=== PATIENT | female | born 1990 ===

== ENCOUNTER 2017-04-18 13:00 | Emergency (ER) | payer MEDICAID ==
[2017-04-18] MEDS ORDERED: Lactated Ringer's 1,000 ML IV ONE (13:15)
[2017-04-18 13:16] VITALS: BMI 29.2
[2017-04-18 13:49] LABS: BASO % 0.4 % (0.0-2.0); EOS % 0.4 % (0.0-4.0); HEMATOCRIT 28.7 % (34.0-47.0); LYMPH # 1.2 K/uL (1.0-4.3); LYMPH % 13.1 % (20.0-40.0); MEAN CELL VOLUME 85.9 fl (81.0-99.0); MEAN CORPUSCULAR HEMOGLOBIN 28.1 pg (27.0-31.0); MEAN CORPUSCULAR HGB CONC 32.7 g/dL (33.0-37.0); MEAN PLATELET VOLUME 9.7 fl (7.2-11.7); MONO # 0.4 K/uL (0.0-0.8); MONO % 4.9 % (0.0-10.0); NEUT # 7.2 K/uL (1.8-7.0); NEUT % 81.2 % (50.0-75.0); RED CELL DISTRIBUTION WIDTH 14.3 % (11.5-14.5); WHITE BLOOD COUNT 8.9 K/uL (4.8-10.8)
--- NOTE | 2017-04-18 15:02 | OBHP ---
Datetime: 04/18/2017 14:44 IP Adm Impression: , intrauterine IP Admit Plan: Discharge home Admit Comment, IP Provider: 26 yo at 33+2 wks w/ EDC 06/04/2017 c/o feeling yara dizzy x 3 da ys. Pt denies feeling dizzy now. Pt also reports feeling a lot of preesure in vagina on Friday, , mild pressure since. Pt denies LOF, VB, reports FM. Pt reports sciatica. 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, denies any abn paps Soc hx: Pt denies tobacco, alcohol, and illicit drugs Fam hx: M-CAD PE: AFVSS Gen'l: pt appears confortable, sitting up in bed Abd: soft, NT, gravid VE: Ect os open, internal os closed, long Ext: NT A/P: 26 yo at 33+2 wks w/ dizziness and pelvic pressure Pt denies sx currently NST reactive Hgb 9.4, anemic Pt encouraged to take her PNVs and start ferrous sulfate 325 1-2 x/ day Rec that she consider PT or chiropractor for sciatica Discharged home Extremities - PN: Normal Abdomen - PN: Normal General - PN: Normal FHR - Baseline A Provider: 120 Membranes, Provider: Intact Contraction Comments Provider: none EGA AdmitDate IP: 33.2 Vital Signs Provider: Reviewed IP Chief Complaint: Maternal discomfort NICHD Variability Prov Fetus A: Moderate 6-25bpm NICHD Accel Fetus A IP Provider: 15X15 FHR Category Provider Fetus A: Category I NICHD Decel Fetus A IP Provider: None Dilatation, Provider: 0 Effacement, Provider: 0 Station, Provider: -3 Genitourinary Exam: Normal
--- NOTE | 2017-04-18 15:10 | OBDCSUM ---
Datetime: 04/18/2017 14:25 Discharged to, Provider: Home Follow up at, Provider: Dr Faulkner Disch Instr Activity: Normal activity Disch Instr Diet: Regular Discharge Instructions, Provider: Routine instructions given Discharge Time: 04/18/2017 14:25 Follow up in weeks, Provider: 03/23/17 Disch Referrals: None Contraception discussed, Prov: No Discharge Diagnosis Prov Other: Dizziness and pelvic pressure at 33+ wks
== END 2017-04-18 14:45 | disposition home or self-care (01) ==
LOC: H.EROB2 13:00
DX: O47.03 False labor before 37 completed weeks of gestation, third trimester (principal); Z3A.33 33 weeks gestation of pregnancy; O26.93 Pregnancy related conditions, unspecified, third trimester; M54.40 Lumbago with sciatica, unspecified side

== ENCOUNTER 2017-05-05 17:48 | Observation (INO) | payer MEDICAID ==
--- NOTE | 2017-05-05 19:19 | OBHP ---
Datetime: 05/05/2017 19:14 IP Adm Impression: , intrauterine IP Chief Complaint Other: pelvic pain IP Admit Plan: Observation/Evaluation Admit Comment, IP Provider: UC and pt feeliing more now sight cercical changes will start iv hydrati on and steroids and antibiotics Pt explained the situation and understands and agreed Extremities - PN: Normal Abdomen - PN: Abnormal Breast - PN: Normal Lungs - PN: Normal Heart - PN: Normal Thyroid - PN: Normal Neurologic - PN: Normal HEENT - PN: Normal General - PN: Normal FHR - Baseline A Provider: 140's Membranes, Provider: Intact Comments, ACOG Physical Exam: Abd gravid NT, fundus at 33 cm above sp ext no calf tenderness Gestation - Est Wks by US: 35w 5d Pool Provider: Negative IP Hx Assessment: The History has been Reviewed and is Current EGA AdmitDate IP: 35.5 Vital Signs Provider: Reviewed IP Chief Complaint: Uterine contractions; Other NICHD Variability Prov Fetus A: Moderate 6-25bpm NICHD Accel Fetus A IP Provider: 10X10 NICHD Decel Fetus A IP Provider: None Dilatation, Provider: 1-2 cm Effacement, Provider: 30% Genitourinary Exam: Normal DTRs - PN: Normal
[2017-05-05 19:22] VITALS: BMI 29.9
[2017-05-05] MEDS ORDERED: Betamethasone Soluspan 30 mg/5mL Inj Susp IM ONE (19:23)
[2017-05-05] MEDS ORDERED: Lactated Ringer's 1,000 ML IV SCH ×2 (19:30→22:15)
[2017-05-05] MEDS: AMPicillin 1 GM in Sodium Chloride 0.9% 100 ML IVPB SCH (20:30)
[2017-05-06] MEDS: AMPicillin 1 GM in Sodium Chloride 0.9% 100 ML IVPB SCH (02:24)
--- NOTE | 2017-05-06 07:51 | OBPN ---
Datetime: 05/06/2017 07:44 IP Progress Impression: Arrest of dilatation/descent; Reassuring heart rate; labor IP Progress Plan: Discharge Membranes, Provider: Intact Contraction Comments Provider: none FHR - Baseline A Provider: 140-150 Gestation - Est Wks by US: 35w 6d IP Progress Note Comment: pt was hydrated and Celestone given and observed overnight no further UC a nd pt voices no more pains No cervical changes noted in this morning exam and discussed with pt about D/C home on bed and pelvic rest and need to hydrate and continue po Macrobid and Valtrex. Pt to ret urn at 8pm tonight for 2nd dose of Celestone. Pt understands and agreed. Will follow in office on T hurraj.. Instructions given NICHD Accel Fetus A IP Provider: 10X10 NICHD Variability Prov Fetus A: Moderate 6-25bpm Dilatation, Provider: 1-2cm Effacement, Provider: 30-40% NICHD Decel Fetus A IP Provider: None Datetime: 05/05/2017 19:14 Pool Provider: Negative Vital Signs Provider: Reviewed Datetime: 04/18/2017 14:44 FHR Category Provider Fetus A: Category I Station, Provider: -3
== END 2017-05-06 07:52 | disposition home or self-care (01) ==
LOC: H.EROB2 17:48 → H.L&D 22:00
PROVIDERS: ADMIT Specialist; ATTEND Specialist
DX: O60.03 Preterm labor without delivery, third trimester (principal); Z3A.35 35 weeks gestation of pregnancy

== ENCOUNTER 2017-05-06 20:00 | Emergency (ER) | payer MEDICAID ==
[2017-05-06] MEDS ORDERED: Betamethasone Soluspan 30 mg/5mL Inj Susp IM ONE (20:28)
[2017-05-06 20:29] VITALS: BMI 30.2
--- NOTE | 2017-05-06 21:11 | OBHP ---
Datetime: 05/06/2017 21:05 IP Adm Impression: , intrauterine IP Admit Plan: Discharge home Admit Comment, IP Provider: IUP at 36w came for 2nd dose of steroids...was given 1st yesterd ay. No CTX; no VB; +FM POBGYNH: x 2 PMH: HSV on Valtrex/IUTI on Macrobid PSH: denies NKA PSoH: crystal smoking, etoh, drug A; IUP at 36w S/P 2nd dose steroids threatened PTL PLAN: d/c home case disucssed with Dr Cerrato...follow up as shceduled Pelvic Type - PN: Not Done Extremities - PN: Normal Abdomen - PN: Normal Back - PN: Normal Breast - PN: Normal Lungs - PN: Normal Heart - PN: Normal Thyroid - PN: Normal Neurologic - PN: Normal HEENT - PN: Normal General - PN: Normal FHR - Baseline A Provider: 130 Pool Provider: Negative IP Hx Assessment: The History has been Reviewed and is Current EGA AdmitDate IP: 35.6 Vital Signs Provider: Reviewed; Within Normal Limits IP Chief Complaint: Other NICHD Variability Prov Fetus A: Moderate 6-25bpm NICHD Accel Fetus A IP Provider: 15X15 FHR Category Provider Fetus A: Category I Genitourinary Exam: Not Done DTRs - PN: Normal Datetime: 05/06/2017 07:44 Membranes, Provider: Intact Contraction Comments Provider: none Gestation - Est Wks by US: 35w 6d NICHD Decel Fetus A IP Provider: None Dilatation, Provider: 1-2cm Effacement, Provider: 30-40%
--- NOTE | 2017-05-06 21:16 | OBDCSUM ---
Datetime: 05/06/2017 21:09 Discharged to, Provider: Home Follow up at, Provider: Dr Faulkner Disch Instr Activity: Normal activity Disch Instr Diet: Regular Discharge Instructions, Provider: Routine instructions given Discharge Diagnosis, Provider: Reynaldo Labor - Undelivered Follow up in weeks, Provider: in 1w Disch Referrals: None Contraception discussed, Prov: Yes Disch Activity Restrictions: Minimize walking; Minimize stair-climbing; No sexual activity; Nothing in vagina - [place], tampons, douche Discharge Comment, Provider: 1nd dose steroids given
== END 2017-05-06 21:30 | disposition home or self-care (01) ==
LOC: H.EROB2 20:00
DX: O47.9 False labor, unspecified (principal); Z3A.36 36 weeks gestation of pregnancy

== ENCOUNTER 2017-05-14 18:12 | Inpatient (IN) | payer MEDICAID ==
[2017-05-14 19:28] VITALS: BP 118/77; PULSE 106; RESP 18; TEMP 99; O2SAT 100
[2017-05-14 19:48] VITALS: BMI 29.9
[2017-05-14] MEDS: Lactated Ringer's 1,000 ML IV SCH (21:00)
[2017-05-14 21:07] LABS: BASO % 0.3 % (0.0-2.0); EOS # 0.1 K/uL (0.0-0.7); EOS % 0.5 % (0.0-4.0); HEMATOCRIT 30.1 % (34.0-47.0); LYMPH # 1.8 K/uL (1.0-4.3); LYMPH % 19.3 % (20.0-40.0); MEAN CELL VOLUME 85.4 fl (81.0-99.0); MEAN CORPUSCULAR HEMOGLOBIN 27.8 pg (27.0-31.0); MEAN CORPUSCULAR HGB CONC 32.6 g/dL (33.0-37.0); MONO # 0.6 K/uL (0.0-0.8); MONO % 6.5 % (0.0-10.0); NEUT # 7.1 K/uL (1.8-7.0); NEUT % 73.4 % (50.0-75.0); RED CELL DISTRIBUTION WIDTH 16.8 % (11.5-14.5); WHITE BLOOD COUNT 9.6 K/uL (4.8-10.8)
[2017-05-14 21:20] LABS: RBC URINE 3 /hpf (0-3); URINE BACTERIA RARE (<OCC); URINE BILIRUBIN NEGATIVE (NEGATIVE); URINE BLOOD NEGATIVE (NEGATIVE); URINE COLOR YELLOW (YELLOW); URINE GLUCOSE (UA) NEG (Normal); URINE KETONE NEGATIVE (NEGATIVE); URINE LEUKOCYTE ESTERASE MOD Leu/uL (Negative); URINE PROTEIN NEGATIVE (NEGATIVE); URINE UROBILINOGEN 0.2-1.0 mg/dL (0.2-1.0); WBC URINE 6 /hpf (0-5)
[2017-05-14] MEDS ORDERED: Oxytocin 30 units/LR 500ML 30 U/500 ML BAG IV ONE (21:20)
[2017-05-14] MEDS: AMPicillin 1 GM in Sodium Chloride 0.9% 100 ML IVPB SCH (21:30)
--- NOTE | 2017-05-14 21:30 | OBADHP ---
Datetime: 05/14/2017 21:22 Admit Comment, IP Provider: Cervical changes noted and pt very unconfortable will admit Start IV ant ibiotics for GBS coverage Extremities - PN: Normal Abdomen - PN: Abnormal Back - PN: Normal Lungs - PN: Normal Heart - PN: Normal Thyroid - PN: Normal Neurologic - PN: Normal HEENT - PN: Normal General - PN: Normal FHR - Baseline A Provider: 150's Membranes, Provider: Intact Contraction Comments Provider: irreg Comments, ACOG Physical Exam: Abd gravid NT fundus at term, FCA+ Ext no calf tenderness Gestation - Est Wks by US: 37.0 Vital Signs Provider: Reviewed IP Chief Complaint: Uterine contractions; Maternal discomfort NICHD Variability Prov Fetus A: Moderate 6-25bpm NICHD Accel Fetus A IP Provider: 10X10 NICHD Decel Fetus A IP Provider: None Dilatation, Provider: 3-4 Effacement, Provider: 50% Station, Provider: -2 Genitourinary Exam: Normal DTRs - PN: Normal IP Adm Impression: Term, intrauterine IP Admit Plan: Admit to unit; Initiate labor protocol Datetime: 05/06/2017 21:05 Pelvic Type - PN: Not Done Breast - PN: Normal Pool Provider: Negative IP Hx Assessment: The History has been Reviewed and is Current FHR Category Provider Fetus A: Category I EGA AdmitDate IP: 35.6 Datetime: 05/05/2017 19:14 IP Chief Complaint Other: pelvic pain
[2017-05-15] MEDS: AMPicillin 1 GM in Sodium Chloride 0.9% 100 ML IVPB SCH ×3 (01:30→09:30)
[2017-05-15] MEDS: Lactated Ringer's 1,000 ML IV SCH (08:00)
--- NOTE | 2017-05-15 10:58 | OBDS ---
MATERNAL INFORMATION Estimated Blood Loss (ml): 200cc Maternal Complications: None Provider Comments: Delivered a living baby boy appears term cried spontaneously, Apfgar 9/9, AF melissa r Placenta delivered complete and intact Small vaginal/perineal laceration repaired as above without any complications Uterus contracted well [id number], no cervical or other vaginal tears/lacerations note d. Tolerated procedure well no complications LABOR SUMMARY EDC: 06/04/2017 00:00 LABOR INFORMATION Reason for Induction: Not Applicable Reason for Induction Other: n/a Group B Beta Strep: Positive Steroids Given: None Reason Steroids Not Administered: Not Applicable Other Reason Not Administered: n/a MEMBRANES Membranes Rupture Method: Artificial Rupture of Membranes: 05/15/2017 07:00 Amniotic Fluid Color: Clear Amniotic Fluid Amount: Moderate Amniotic Fluid Odor: Normal VAGINAL DELIVERY Episiotomy: None Laceration Extension: First Degree Laceration Type: Vaginal Laceration Repair Note: small vaginal-peineal laceration 1st dg repaired with 2-0 chromic without an y complications Sponge Count Correct: Yes Sharps Count Correct: Yes Count Comment: count correct CSECTION DELIVERY Primary Indication: N/A Secondary Indication: N/A CSection Incision: N/A BABY A INFORMATION Forceps: N/A Vacuum Extraction: N/A Shoulder Dystocia : No PLACENTA INFORMATION BABY A Placenta Method of Delivery: Spontaneous Placenta Status: Delivered CORD INFORMATION BABY A Nuchal Cord : Around Neck x1, Loose
[2017-05-15] MEDS ORDERED: Oxycodone/Acetaminophen 5/325 mg Tab PO PRN ×2 (11:00→15:10)
[2017-05-15] MEDS ORDERED: Benzocaine/Menthol SPRAY TOP PRN ×2 (12:36→15:10)
[2017-05-16 07:13] LABS: HEMATOCRIT 28.5 % (34.0-47.0); MEAN CELL VOLUME 85.4 fl (81.0-99.0); MEAN CORPUSCULAR HEMOGLOBIN 27.7 pg (27.0-31.0); MEAN CORPUSCULAR HGB CONC 32.4 g/dL (33.0-37.0); RED CELL DISTRIBUTION WIDTH 17.4 % (11.5-14.5); WHITE BLOOD COUNT 8.6 K/uL (4.8-10.8)
--- NOTE | 2017-05-16 10:11 | OBPPN ---
Datetime: 05/16/2017 10:02 PP Pain Prov: Within normal limits PP Pain Prov comment: No SOB, chest pains or leg pains PP Nausea Prov: Denies PP Flatus Prov: Yes PP BM Prov: No PP Breasts Prov: Normal PP Lungs Prov: Normal PP Abdomen/Uterus Prov: Abnormal PP Lochia Prov: Normal PP Vulva/Perineum Prov: Abnormal PP CVA Tenderness Prov: Normal PP Extremities Prov: Normal PP C/S Incision Prov: Not Applicable PP Progress Prov: Normal PP Comments Phys Exam Prov: Abd soft, ND, fundus firm NT below the umb, perineum repaired Ext no angie f tenderness PP Impression Prov: Normal progression PP Plan Prov: Continue present management PP Impression Other Prov: anemia PP Progress Note Prov: Continue PP care and start on po iron (pt is totally asymptomatic) Vital Signs Provider PP: Reviewed
--- NOTE | 2017-05-17 11:16 | OBDCSUM ---
Datetime: 05/17/2017 11:11 Discharged to, Provider: Home Follow up at, Provider: Disch Instr Activity: May be up to bathroom; May be up for meals; May Shower Disch Instr Diet: Regular Discharge Instructions, Provider: Routine instructions given Discharge Diagnosis, Provider: Term Delivered Discharge Time: 05/17/2017 11:11 Follow up in weeks, Provider: 4-6weeks Disch Referrals: None Disch Activity Restrictions: No exercising; No lifting; No driving; Minimize walking; Minimize stair -climbing; No sexual activity; Nothing in vagina - [place], tampons, douche Discharge Comment, Provider: stable ppd2 dc home today call office if any problems Contraception after Delivery: Undecided
[2017-05-17] MEDS ORDERED: Measles, Mumps, and Rubella 0.5 ML VIAL SC ONE (11:55)
== END 2017-05-17 13:36 | disposition home or self-care (01) | DRG 373 ==
LOC: H.EROB2 18:12 → H.L&D 19:02 → H.OB/GYN 05-15 14:12
PROVIDERS: ADMIT Specialist; ATTEND Specialist
PROC: 4A1HXCZ Monitoring of Products of Conception, Cardiac Rate, External Approach (ICD-10-PCS; 2017-05-14)
PROC: 10E0XZZ Delivery of Products of Conception, External Approach (ICD-10-PCS; principal; 2017-05-15)
PROC: 0HQ9XZZ Repair Perineum Skin, External Approach (ICD-10-PCS; 2017-05-15)
DX: O69.81X0 Labor and delivery complicated by cord around neck, without compression, not applicable or unspecified (principal); O70.0 First degree perineal laceration during delivery; Z37.0 Single live birth; Z3A.37 37 weeks gestation of pregnancy